=== PATIENT | male | born 1930 | race Caucasian/White ===

== ENCOUNTER 2016-10-17 10:53 | Emergency (ER) | payer MEDICARE ==
[~2016-10-17] VITALS: Ht 175.3 cm; Wt 84.0 kg
[~2016-10-17 10:53] MED LIST: ASPI-496 PO; ERGO500017 PO; FLUT1DIS3 INH; FURO-93 PO; GABA-826 PO; METH500T7 PO; MORP30CP12 PO; POLY17PO5 PO; RANI150T8 PO; TIOT18CA INH
[2016-10-17] MEDS ORDERED: MORPHINE SULFATE 4 MG/ML, 1ML ONE ×2 (11:29→13:06)
[2016-10-17] MEDS ORDERED: SODIUM CHLORIDE FLUSH 10ML SYR IVF ONE (11:30)
[2016-10-17] MEDS ORDERED: SODIUM CHLORIDE 0.9% 1,000ML IVBOLUS ONE (11:30)
[2016-10-17] MEDS ORDERED: MORPHINE SULFATE 4 MG/ML, 1ML IVPush PRN (11:30)
[2016-10-17] MEDS ORDERED: FLUT1AER INH (12:01)
[2016-10-17] MEDS ORDERED: UMEC62.5 INH (12:01)
[2016-10-17] MEDS ORDERED: FINA5TAB PO (12:01)
[2016-10-17] MEDS ORDERED: BUDE0.5A INH (12:01)
[2016-10-17] MEDS ORDERED: MAGN100T6 PO (12:01)
[2016-10-17] MEDS ORDERED: BUDE10.2 INH (12:01)
[2016-10-17] MEDS ORDERED: TRAZ100T15 PO (12:01)
[2016-10-17] MEDS ORDERED: ACET325T14 PO (12:01)
[2016-10-17] MEDS ORDERED: DOCU100C8 PO (12:01)
[2016-10-17] MEDS ORDERED: TAMS-11 PO (12:01)
[2016-10-17] MEDS ORDERED: METF500T4 PO (12:02)
[2016-10-17 12:12] LABS: ASPARTATE AMINO TRANSFERASE 12 U/L (15-37); BLOOD UREA NITROGEN 22 mg/dL (7-18); IS PT STATUS REG ER OR PRE ER? YES
[2016-10-17] MEDS ORDERED: GABA300C10 PO (17:23)
[2016-10-17 18:50] VITALS: BP 122/65
[2016-10-17] MEDS ORDERED: INSULIN SINGLE DOSE, ER SQ-INSULIN ONE (19:01)
== END 2016-10-17 18:52 | disposition home or self-care (01) ==
LOC: ED 15:54
DX: M79.2 Neuralgia and neuritis, unspecified (principal); R53.1 Weakness; R52 Pain, unspecified; I10 Essential (primary) hypertension; J44.9 Chronic obstructive pulmonary disease, unspecified; I48.91 Unspecified atrial fibrillation
CPT/HCPCS: 36415; 71010; 80053; 81003; 84436; 84443; 84484; 85025; 93005; 96361; 96374; 99285; J7030

== ENCOUNTER 2017-10-01 10:58 | Emergency (ER) | payer SELFPAY ==
[~2017-10-01] VITALS: Ht 175.3 cm; Wt 68.0 kg
[~2017-10-01 10:58] MED LIST changes: +ACET325T14 PO; +BUDE0.5A INH; +BUDE10.2 INH; +DOCU100C33 PO; +FINA5TAB PO; +FLUT1AER INH; +GABA300C10 PO; +MAGN100T6 PO; +METF500T5 PO; +RANI150T23 PO; -RANI150T8 PO; +TAMS-11 PO; +TRAZ100T15 PO; +UMEC62.5 INH
[2017-10-01] MEDS ORDERED: ASPIRIN 81 MG TABLET CHEW ONE (11:30)
[2017-10-01] MEDS ORDERED: ASPIRIN 81 MG TABLET CHEW PO ONE (11:30)
[2017-10-01 11:35] LABS: MEAN CORPUSCULAR HEMOGLOBIN 29.5 pg (27.5-34.5); MEAN CORPUSCULAR VOLUME 89.4 fL (81-97); MEAN PLATELET VOLUME 9.3 fL (7.4-10.4); PLATELET COUNT 184 x10^3/uL (130-400); RED BLOOD COUNT 4.14 x10^6/uL (4.38-5.82); RED CELL DISTRIBUTION WIDTH 24.5 % (9.4-14.8)
[2017-10-01 11:39] LABS: INTERNATIONAL NORMALIZED RATIO 1.07 (0.93-1.1); PROTHROMBIN TIME 11.1 Seconds (9.6-11.5)
[2017-10-01] MEDS ORDERED: VIT1CAPS42 PO (11:42)
[2017-10-01] MEDS ORDERED: TIOT4MIS3 INH (11:42)
[2017-10-01] MEDS ORDERED: ACET500T63 PO (11:42)
[2017-10-01] MEDS ORDERED: MELA3TAB2 PO (11:42)
[2017-10-01 11:44] LABS: ALANINE AMINOTRANSFERASE 18 U/L (12-78); ANION GAP 5 mmol/L (5-15); CALCIUM 9.3 mg/dL (8.5-10.1); CHLORIDE 101 mmol/L (98-107); CREATININE 0.84 mg/dL (0.7-1.3)
[2017-10-01 11:48] LABS: ALKALINE PHOSPHATASE 68 U/L (45-117); BILIRUBIN,TOTAL 0.4 mg/dL (0.2-1.0); TOTAL PROTEIN 5.9 g/dL (6.4-8.2); TROPONIN I < 0.015 ng/mL (0.000-0.045)
[2017-10-01 11:59] LABS: BASOPHILS # (AUTO) 0.05 x10^3/uL (0-0.1); BASOPHILS % (AUTO) 1 % (0-1); EOSINOPHILS # (AUTO) 0.09 x10^3/uL (0-0.4); EOSINOPHILS % (AUTO) 1 % (1-7); LYMPHOCYTES # (AUTO) 1.21 x10^3/uL (1-3.4); LYMPHOCYTES % (AUTO) 17 % (22-44); MD SCAN; MONOCYTES # (AUTO) 0.61 x10^3/uL (0.2-0.8); MONOCYTES % (AUTO) 9 % (2-9); NEUTROPHILS % (AUTO) 72 % (42-75)
[2017-10-01 14:10] VITALS: BP 128/62
== END 2017-10-01 16:00 | disposition home or self-care (01) ==
LOC: ED 12:43
DX: R07.89 Other chest pain (principal); K59.00 Constipation, unspecified; I48.91 Unspecified atrial fibrillation; I10 Essential (primary) hypertension; J44.9 Chronic obstructive pulmonary disease, unspecified; F17.200 Nicotine dependence, unspecified, uncomplicated
CPT/HCPCS: 36415; 74022; 80053; 83605; 83880; 84484; 85025; 85610; 93005; 99285

== ENCOUNTER 2018-01-06 16:40 | Emergency (ER) | payer MEDICARE, OTHER ==
[~2018-01-06] VITALS: Ht 175.3 cm; Wt 71.0 kg
[~2018-01-06 16:40] MED LIST changes: +ACET500T63 PO; +MELA3TAB2 PO; +METF500T17 PO; -METF500T5 PO; +TIOT4MIS3 INH; +TRAZ-137 PO; -TRAZ100T15 PO; +VIT1CAPS42 PO
[2018-01-06] MEDS ORDERED: SODIUM CHLORIDE FLUSH 10ML SYR IVF ONE (17:00)
[2018-01-06 17:04] LABS: BASOPHILS # (AUTO) 0.09 x10^3/uL (0-0.1); BASOPHILS % (AUTO) 1 % (0-1); EOSINOPHILS # (AUTO) 0.17 x10^3/uL (0-0.4); EOSINOPHILS % (AUTO) 2 % (1-7); LYMPHOCYTES # (AUTO) 1.53 x10^3/uL (1-3.4); LYMPHOCYTES % (AUTO) 15 % (22-44); MD NO; MEAN CORPUSCULAR HEMOGLOBIN 33.1 pg (27.5-34.5); MEAN CORPUSCULAR HGB CONC 34.1 g/dL (33.2-36.2); MEAN PLATELET VOLUME 8.3 fL (7.4-10.4); MONOCYTES # (AUTO) 1.15 x10^3/uL (0.2-0.8); MONOCYTES % (AUTO) 12 % (2-9); NEUTROPHILS # (AUTO) 7.08 x10^3/uL (1.8-6.8); NEUTROPHILS % (AUTO) 71 % (42-75); PLATELET COUNT 250 x10^3/uL (130-400); RED BLOOD COUNT 3.71 x10^6/uL (4.38-5.82); RED CELL DISTRIBUTION WIDTH 14.4 % (9.4-14.8)
[2018-01-06 17:12] LABS: INTERNATIONAL NORMALIZED RATIO 1.08 (0.93-1.1); PROTHROMBIN TIME 11.1 Seconds (9.6-11.5)
[2018-01-06 17:14] LABS: ALANINE AMINOTRANSFERASE 19 U/L (12-78); ALBUMIN 3.1 g/dL (3.4-5.0); ANION GAP 7 mmol/L (5-15); CALCIUM 9.3 mg/dL (8.5-10.1); CHLORIDE 97 mmol/L (98-107); CREATININE 0.72 mg/dL (0.7-1.3)
[2018-01-06 17:19] LABS: ALKALINE PHOSPHATASE 73 U/L (45-117); BILIRUBIN,TOTAL 0.4 mg/dL (0.2-1.0); TOTAL PROTEIN 6.2 g/dL (6.4-8.2); TROPONIN I < 0.015 ng/mL (0.000-0.045)
[2018-01-06 17:48] VITALS: BP 129/57
[2018-01-06] MEDS ORDERED: SODIUM CHLORIDE FLUSH 10ML SYR IVF PRN (18:30)
== END 2018-01-06 18:46 | disposition left against medical advice (07) ==
LOC: ED 17:51 → EDIP 18:01 → UNDOADMIN 18:01 → ED 18:46
DX: I20.0 Unstable angina (principal); I10 Essential (primary) hypertension; E11.9 Type 2 diabetes mellitus without complications; I25.2 Old myocardial infarction; K21.9 Gastro-esophageal reflux disease without esophagitis; I48.91 Unspecified atrial fibrillation; J44.9 Chronic obstructive pulmonary disease, unspecified; F17.200 Nicotine dependence, unspecified, uncomplicated
CPT/HCPCS: 36415; 71045; 80053; 84484; 85025; 85610; 85730; 93005; 99285

== ENCOUNTER 2018-01-12 14:13 | Observation (INO) | payer OTHER ==
[~2018-01-12] VITALS: Ht 175.3 cm; Wt 66.9 kg
[2018-01-12] VITALS (7 sets, daily range): BP systolic 96–162; BP diastolic 45–77
[2018-01-12] MEDS ORDERED: SODIUM CHLORIDE FLUSH 10ML SYR IVF ONE (14:30)
[2018-01-12 15:07] LABS: BASOPHILS # (AUTO) 0.07 x10^3/uL (0-0.1); BASOPHILS % (AUTO) 1 % (0-1); EOSINOPHILS % (AUTO) 1 % (1-7); LYMPHOCYTES # (AUTO) 1.09 x10^3/uL (1-3.4); LYMPHOCYTES % (AUTO) 10 % (22-44); MD NO; MEAN CORPUSCULAR HEMOGLOBIN 32.2 pg (27.5-34.5); MEAN CORPUSCULAR HGB CONC 32.9 g/dL (33.2-36.2); MEAN CORPUSCULAR VOLUME 97.7 fL (81-97); MEAN PLATELET VOLUME 8.5 fL (7.4-10.4); MONOCYTES # (AUTO) 1.38 x10^3/uL (0.2-0.8); MONOCYTES % (AUTO) 13 % (2-9); NEUTROPHILS # (AUTO) 8.24 x10^3/uL (1.8-6.8); NEUTROPHILS % (AUTO) 76 % (42-75); PLATELET COUNT 235 x10^3/uL (130-400); RED BLOOD COUNT 3.73 x10^6/uL (4.38-5.82); RED CELL DISTRIBUTION WIDTH 14.7 % (9.4-14.8)
[2018-01-12 15:19] LABS: ALANINE AMINOTRANSFERASE 20 U/L (12-78); ALBUMIN 2.9 g/dL (3.4-5.0); ANION GAP 9 mmol/L (5-15); CALCIUM 9.3 mg/dL (8.5-10.1); CHLORIDE 99 mmol/L (98-107); CREATININE 0.85 mg/dL (0.7-1.3)
[2018-01-12 15:24] LABS: ALKALINE PHOSPHATASE 75 U/L (45-117); BILIRUBIN,TOTAL 0.5 mg/dL (0.2-1.0); TOTAL PROTEIN 6.1 g/dL (6.4-8.2); TROPONIN I < 0.015 ng/mL (0.000-0.045)
[2018-01-12] MEDS ORDERED: CHOL200074 PO (15:33)
[2018-01-12] MEDS ORDERED: FERR325T5 PO (15:33)
[2018-01-12] MEDS ORDERED: SENN-52 PO (15:33)
[2018-01-12] MEDS ORDERED: SODIUM CHLORIDE FLUSH 10ML SYR IVF PRN (16:00)
[2018-01-12] MEDS ORDERED: DEXTROSE 50%, 50ML SYRINGE IVPush PRN (17:00)
[2018-01-12] MEDS ORDERED: BISACODYL 10 MG SUPP PR PRN (17:00)
[2018-01-12] MEDS ORDERED: GLUCAGON 1 MG IM PRN (17:00)
[2018-01-12] MEDS ORDERED: NICOTINE 14MG/24 HR PATCH.TD24 TD SCH (17:00)
[2018-01-12] MEDS ORDERED: POLYETHYLENE GLYCOL 17 GM PACKET PO PRN (17:00)
[2018-01-12] MEDS ORDERED: DOCUSATE 100 MG CAPSULE PO PRN (17:00)
[2018-01-12] MEDS ORDERED: DEXTROSE 4 GM TAB.CHEW PO PRN (17:00)
[2018-01-12 17:44] LABS: TROPONIN I < 0.015 ng/mL (0.000-0.045)
[2018-01-12 17:49] LABS: THYROID STIMULATING HORMONE 0.743 mIU/L (0.358-3.740)
[2018-01-12 17:55] LABS: HEMOGLOBIN A1C 6.1 % (4.2-6.3)
[2018-01-12] MEDS: HEPARIN 5,000 UNITS/ML, 1ML SQ SCH (18:26)
[2018-01-12] MEDS ORDERED: TEMPLATE NON-FORMULARY MED. (Vit C/E/Zn/Coppr/Lutein/Zeaxan** (Preservision Areds 2 Softge PO SCH (21:00)
[2018-01-12] MEDS ORDERED: NITROGLYCERIN 0.4 MG BOTTLE (25 TABS) SL ONE (21:20)
[2018-01-12] MEDS: SODIUM CHLORIDE 0.9% 1,000 ML IV SCH (21:27)
[2018-01-12] MEDS: SODIUM CHLORIDE FLUSH 10ML SYR IVF SCH (21:28)
[2018-01-12] MEDS ORDERED: NITROGLYCERIN 0.4 MG BOTTLE (25 TABS) SL PRN (21:30)
[2018-01-12] MEDS ORDERED: NITROGLYCERIN 0.4 MG/SPRAY SL PRN (21:30)
[2018-01-12] MEDS: GABAPENTIN 300 MG CAPSULE PO SCH (22:14)
[2018-01-12] MEDS: INSULIN LISPRO 100 UNITS/ML, PEN SQ-INSULIN SCH (22:15)
[2018-01-12] MEDS: ACETAMINOPHEN 325 MG TABLET PO PRN (22:15)
[2018-01-12 23:21] LABS: TROPONIN I < 0.015 ng/mL (0.000-0.045)
[2018-01-12] MEDS ORDERED: MORPHINE SULFATE 4 MG/ML, 1ML IVPush ONE (23:30)
[2018-01-13] MEDS ORDERED: MELATONIN 3 MG TABLET ONE (00:20)
[2018-01-13 00:22] LABS: AMPHETAMINE SCREEN, URINE Negative (Negative); BARBITURATE SCREEN, URINE Negative (Negative); BENZODIAZEPINE SCREEN, URINE Negative (Negative); CANNABINOID SCREEN, URINE Negative (Negative); COCAINE SCREEN, URINE Negative (Negative); METHADONE SCREEN, URINE Negative (Negative); OPIATE SCREEN, URINE Negative (Negative)
[2018-01-13 00:23] VITALS: BP 138/60
[2018-01-13] MEDS ORDERED: MELATONIN 3 MG TABLET PO PRN (00:30)
[2018-01-13] MEDS: ACETAMINOPHEN 325 MG TABLET PO PRN (04:42)
[2018-01-13 05:11] LABS: BASOPHILS % (AUTO) 1 % (0-1); EOSINOPHILS # (AUTO) 0.17 x10^3/uL (0-0.4); EOSINOPHILS % (AUTO) 2 % (1-7); LYMPHOCYTES # (AUTO) 1.19 x10^3/uL (1-3.4); LYMPHOCYTES % (AUTO) 14 % (22-44); MD NO; MEAN CORPUSCULAR HEMOGLOBIN 32.7 pg (27.5-34.5); MEAN CORPUSCULAR HGB CONC 33.5 g/dL (33.2-36.2); MEAN CORPUSCULAR VOLUME 97.7 fL (81-97); MEAN PLATELET VOLUME 9.1 fL (7.4-10.4); MONOCYTES # (AUTO) 1.14 x10^3/uL (0.2-0.8); MONOCYTES % (AUTO) 14 % (2-9); NEUTROPHILS # (AUTO) 5.66 x10^3/uL (1.8-6.8); NEUTROPHILS % (AUTO) 69 % (42-75); PLATELET COUNT 208 x10^3/uL (130-400); RED BLOOD COUNT 3.44 x10^6/uL (4.38-5.82); RED CELL DISTRIBUTION WIDTH 14.4 % (9.4-14.8)
[2018-01-13 05:23] LABS: CHLORIDE 103 mmol/L (98-107)
[2018-01-13 05:34] LABS: ALANINE AMINOTRANSFERASE 18 U/L (12-78); ALBUMIN 2.7 g/dL (3.4-5.0); ALKALINE PHOSPHATASE 67 U/L (45-117); ANION GAP 5 mmol/L (5-15); BILIRUBIN,TOTAL 0.6 mg/dL (0.2-1.0); CALCIUM 9.3 mg/dL (8.5-10.1); CREATININE 0.59 mg/dL (0.7-1.3); TOTAL PROTEIN 5.5 g/dL (6.4-8.2); TROPONIN I < 0.015 ng/mL (0.000-0.045)
[2018-01-13] MEDS: SODIUM CHLORIDE 0.9% 1,000 ML IV SCH ×2 (05:53→14:00)
[2018-01-13] MEDS: HEPARIN 5,000 UNITS/ML, 1ML SQ SCH ×2 (05:54→14:01)
[2018-01-13] MEDS ORDERED: ASPIRIN 81 MG TABLET EC PO SCH (06:00)
[2018-01-13 07:18] VITALS: BP 149/65
[2018-01-13] MEDS: INSULIN LISPRO 100 UNITS/ML, PEN SQ-INSULIN SCH ×3 (07:38→16:18)
[2018-01-13] MEDS ORDERED: (Tiotropium Br/Olodaterol HCl (Stiolto Respimat Inhal Spray) 2 HOMEMEDPO SCH (09:00)
[2018-01-13] MEDS ORDERED: CHOLECALCIFEROL 1,000 UNIT TABLET PO SCH (09:00)
[2018-01-13] MEDS ORDERED: TAMSULOSIN 0.4 MG CAP.ER.24H PO SCH (09:00)
[2018-01-13] MEDS ORDERED: SENNA/DOCUSATE TABLET PO SCH (09:00)
[2018-01-13] MEDS: SODIUM CHLORIDE FLUSH 10ML SYR IVF SCH (09:16)
[2018-01-13] MEDS: GABAPENTIN 300 MG CAPSULE PO SCH ×2 (09:16→16:18)
[2018-01-13] MEDS ORDERED: ATOR40TA78 PO (15:00)
[2018-01-13 15:58] VITALS: BP 147/72
== END 2018-01-13 16:57 | disposition home or self-care (01) ==
LOC: ED 14:24 → EDIP 16:51 → 5SO 17:36
PROVIDERS: ADMIT Hospitalist; ATTEND Hospitalist
DX: R07.89 Other chest pain (principal); E11.9 Type 2 diabetes mellitus without complications; E87.1 Hypo-osmolality and hyponatremia; E88.09 Other disorders of plasma-protein metabolism, not elsewhere classified; G89.29 Other chronic pain; I10 Essential (primary) hypertension; I25.110 Atherosclerotic heart disease of native coronary artery with unstable angina pectoris; I25.2 Old myocardial infarction; I48.91 Unspecified atrial fibrillation; J44.9 Chronic obstructive pulmonary disease, unspecified; K21.9 Gastro-esophageal reflux disease without esophagitis; M19.90 Unspecified osteoarthritis, unspecified site; N13.30 Unspecified hydronephrosis; N40.0 Benign prostatic hyperplasia without lower urinary tract symptoms; N43.3 Hydrocele, unspecified; Z86.73 Personal history of transient ischemic attack (TIA), and cerebral infarction without residual deficits; Z99.81 Dependence on supplemental oxygen
CPT/HCPCS: 36415; 71045; 76870; 80053; 80307; 82962; 83036; 83690; 83735; 84100; 84443; 84484; 85025; 93005; 93306; 96372; 99285; G0378; J1644; J1815; J7030

== ENCOUNTER 2018-02-14 15:23 | Inpatient (IN) | payer MEDICARE, OTHER ==
[~2018-02-14] VITALS: Ht 175.3 cm; Wt 62.3 kg
[~2018-02-14 15:23] MED LIST changes: +ATOR40TA78 PO; +CHOL200074 PO; +FERR325T5 PO; +SENN-52 PO
[2018-02-14 16:21] LABS: BASOPHILS # (AUTO) 0.06 x10^3/uL (0-0.1); BASOPHILS % (AUTO) 1 % (0-1); EOSINOPHILS # (AUTO) 0.08 x10^3/uL (0-0.4); EOSINOPHILS % (AUTO) 1 % (1-7); LYMPHOCYTES # (AUTO) 0.87 x10^3/uL (1-3.4); LYMPHOCYTES % (AUTO) 11 % (22-44); MD NO; MEAN CORPUSCULAR HEMOGLOBIN 33.3 pg (27.5-34.5); MEAN CORPUSCULAR HGB CONC 33.7 g/dL (33.2-36.2); MEAN CORPUSCULAR VOLUME 98.8 fL (81-97); MEAN PLATELET VOLUME 8.6 fL (7.4-10.4); MONOCYTES # (AUTO) 0.73 x10^3/uL (0.2-0.8); MONOCYTES % (AUTO) 9 % (2-9); NEUTROPHILS # (AUTO) 6.26 x10^3/uL (1.8-6.8); NEUTROPHILS % (AUTO) 78 % (42-75); PLATELET COUNT 198 x10^3/uL (130-400); RED BLOOD COUNT 3.92 x10^6/uL (4.38-5.82); RED CELL DISTRIBUTION WIDTH 16.5 % (9.4-14.8)
[2018-02-14] MEDS ORDERED: ONDANSETRON 2MG/ML, 2ML IVPush ONE (16:30)
[2018-02-14] MEDS ORDERED: morphine SULFATE 10 MG/ML, 1ML IVPush ONE (16:30)
[2018-02-14 16:32] LABS: ALBUMIN 3.1 g/dL (3.4-5.0); ANION GAP 7 mmol/L (5-15); CALCIUM 9.7 mg/dL (8.5-10.1); CHLORIDE 101 mmol/L (98-107)
[2018-02-14 16:37] LABS: ALANINE AMINOTRANSFERASE 30 U/L (12-78); ALKALINE PHOSPHATASE 88 U/L (45-117); BILIRUBIN,TOTAL 0.6 mg/dL (0.2-1.0); CREATININE 0.79 mg/dL (0.7-1.3); TOTAL PROTEIN 6.5 g/dL (6.4-8.2); TROPONIN I < 0.015 ng/mL (0.000-0.045)
[2018-02-14] MEDS ORDERED: CARB15DR5 EACHEYE (16:53)
[2018-02-14] MEDS ORDERED: morphine SULFATE 10 MG/ML, 1ML IVPush PRN (17:00)
[2018-02-14] MEDS ORDERED: TEMPLATE NON-FORMULARY MED. (Gabapentin** 300 MG) PO SCH (17:00)
[2018-02-14] MEDS ORDERED: DEXTROSE 50%, 50ML SYRINGE IVPush PRN (17:00)
[2018-02-14] MEDS ORDERED: DEXTROSE 4 GM TAB.CHEW PO PRN (17:00)
[2018-02-14] MEDS ORDERED: ONDANSETRON 2MG/ML, 2ML IVPush PRN (17:00)
[2018-02-14] MEDS ORDERED: GLUCAGON 1 MG IM PRN (17:00)
[2018-02-14] MEDS: NICOTINE 7 MG/24 HR PATCH.TD24 TD SCH (17:00)
[2018-02-14] MEDS ORDERED: MORPHINE SULFATE 4 MG/ML, 1ML ONE (17:04)
[2018-02-14] MEDS ORDERED: ONDANSETRON 2MG/ML, 2ML ONE (17:04)
[2018-02-14] MEDS: SODIUM CHLORIDE FLUSH 10ML SYR IVF SCH ×2 (19:13→21:27)
[2018-02-14 19:55] VITALS: BP 148/64
[2018-02-14] MEDS ORDERED: TEMPLATE NON-FORMULARY MED. (Vit C/E/Zn/Coppr/Lutein/Zeaxan** (Preservision Areds 2 Softge PO SCH (21:00)
[2018-02-14] MEDS: INSULIN LISPRO 100 UNITS/ML, PEN SQ-INSULIN SCH (21:00)
[2018-02-14] MEDS: GABAPENTIN 300 MG CAPSULE PO SCH (21:26)
[2018-02-14] MEDS: ATORVASTATIN 40 MG TABLET PO SCH (21:27)
[2018-02-14] MEDS: MELATONIN 3 MG TABLET PO SCH (21:27)
[2018-02-14] MEDS: metFORMIN 500 MG TABLET PO SCH (21:27)
[2018-02-15 00:52] VITALS: BP 97/57
[2018-02-15] MEDS: IBUPROFEN 600 MG TABLET PO PRN ×2 (04:52→11:11)
[2018-02-15] MEDS: INSULIN LISPRO 100 UNITS/ML, PEN SQ-INSULIN SCH ×4 (07:57→21:00)
[2018-02-15] MEDS: FERROUS SULFATE 325 MG TABLET PO SCH (07:58)
[2018-02-15] MEDS: SODIUM CHLORIDE FLUSH 10ML SYR IVF SCH ×4 (07:58→21:12)
[2018-02-15] MEDS: ASPIRIN 81 MG TABLET CHEW PO SCH (07:58)
[2018-02-15] MEDS: TEMPLATE NON-FORMULARY MED. (Tiotropium Br/Olodaterol HCl (Stiolto Respimat Inhal Spray) 2 INH SCH (07:58)
[2018-02-15] MEDS: SENNA/DOCUSATE TABLET PO SCH ×2 (07:59→08:00)
[2018-02-15] MEDS: MULTIVITAMINS/MINERALS TABLET PO SCH (07:59)
[2018-02-15] MEDS: TAMSULOSIN 0.4 MG CAP.ER.24H PO SCH (07:59)
[2018-02-15] MEDS: GABAPENTIN 300 MG CAPSULE PO SCH ×3 (07:59→21:13)
[2018-02-15] MEDS: metFORMIN 500 MG TABLET PO SCH ×2 (08:01→21:13)
[2018-02-15] MEDS: ENOXAPARIN 40 MG/0.4 ML SQ SCH (08:01)
[2018-02-15] MEDS: HYDROcodone/APAP 5/325 TABLET PO PRN ×4 (08:01→22:12)
[2018-02-15 08:14] VITALS: BP 102/58
[2018-02-15 14:52] VITALS: BP 109/61
[2018-02-15] MEDS: NICOTINE 7 MG/24 HR PATCH.TD24 TD SCH (16:17)
[2018-02-15 19:39] VITALS: BP 104/66
[2018-02-15] MEDS: ACETAMINOPHEN 325 MG TABLET PO PRN (19:58)
[2018-02-15] MEDS: MELATONIN 3 MG TABLET PO SCH (21:13)
[2018-02-15] MEDS: ATORVASTATIN 40 MG TABLET PO SCH (21:13)
[2018-02-16 02:16] VITALS: BP 120/63
[2018-02-16] MEDS: HYDROcodone/APAP 5/325 TABLET PO PRN ×3 (03:12→15:21)
[2018-02-16] MEDS: ACETAMINOPHEN 325 MG TABLET PO PRN (05:06)
[2018-02-16] MEDS: INSULIN LISPRO 100 UNITS/ML, PEN SQ-INSULIN SCH ×4 (07:00→23:00)
[2018-02-16 08:05] VITALS: BP 100/57
[2018-02-16] MEDS: TEMPLATE NON-FORMULARY MED. (Tiotropium Br/Olodaterol HCl (Stiolto Respimat Inhal Spray) 2 INH SCH (08:28)
[2018-02-16] MEDS: SODIUM CHLORIDE FLUSH 10ML SYR IVF SCH ×4 (08:29→19:56)
[2018-02-16] MEDS: TAMSULOSIN 0.4 MG CAP.ER.24H PO SCH (08:29)
[2018-02-16] MEDS: POLYETHYLENE GLYCOL 17 GM PACKET PO PRN (08:29)
[2018-02-16] MEDS: MULTIVITAMINS/MINERALS TABLET PO SCH (08:29)
[2018-02-16] MEDS: GABAPENTIN 300 MG CAPSULE PO SCH ×3 (08:30→19:55)
[2018-02-16] MEDS: ASPIRIN 81 MG TABLET CHEW PO SCH (08:30)
[2018-02-16] MEDS: metFORMIN 500 MG TABLET PO SCH ×2 (08:30→19:55)
[2018-02-16] MEDS: FERROUS SULFATE 325 MG TABLET PO SCH (08:30)
[2018-02-16] MEDS: SENNA/DOCUSATE TABLET PO SCH ×2 (08:30)
[2018-02-16] MEDS: ENOXAPARIN 40 MG/0.4 ML SQ SCH (08:30)
[2018-02-16] MEDS ORDERED: ONDANSETRON ODT 4 MG ONE (12:35)
[2018-02-16] MEDS: ONDANSETRON ODT 4 MG PO PRN (12:50)
[2018-02-16 14:38] VITALS: BP 123/66
[2018-02-16] MEDS: NICOTINE 7 MG/24 HR PATCH.TD24 TD SCH (17:00)
[2018-02-16 19:19] VITALS: BP 92/55
[2018-02-16] MEDS: MELATONIN 3 MG TABLET PO SCH (19:55)
[2018-02-16] MEDS: ATORVASTATIN 40 MG TABLET PO SCH (19:55)
[2018-02-16] MEDS ORDERED: BISACODYL 10 MG SUPP PR PRN (22:00)
[2018-02-17 01:34] VITALS: BP 102/62
[2018-02-17] MEDS: HYDROcodone/APAP 5/325 TABLET PO PRN ×4 (05:54→20:58)
[2018-02-17] MEDS: INSULIN LISPRO 100 UNITS/ML, PEN SQ-INSULIN SCH ×4 (07:00→20:45)
[2018-02-17 07:12] VITALS: BP 97/63
[2018-02-17] MEDS: TEMPLATE NON-FORMULARY MED. (Tiotropium Br/Olodaterol HCl (Stiolto Respimat Inhal Spray) 2 INH SCH (07:55)
[2018-02-17] MEDS: SODIUM CHLORIDE FLUSH 10ML SYR IVF SCH ×4 (07:55→20:58)
[2018-02-17] MEDS: SENNA/DOCUSATE TABLET PO SCH ×2 (07:56→07:57)
[2018-02-17] MEDS: MULTIVITAMINS/MINERALS TABLET PO SCH (09:33)
[2018-02-17] MEDS: ASPIRIN 81 MG TABLET CHEW PO SCH (09:33)
[2018-02-17] MEDS: ENOXAPARIN 40 MG/0.4 ML SQ SCH (09:33)
[2018-02-17] MEDS: FERROUS SULFATE 325 MG TABLET PO SCH (09:33)
[2018-02-17] MEDS: IBUPROFEN 600 MG TABLET PO PRN (09:33)
[2018-02-17] MEDS: GABAPENTIN 300 MG CAPSULE PO SCH ×3 (09:33→20:58)
[2018-02-17] MEDS: TAMSULOSIN 0.4 MG CAP.ER.24H PO SCH (09:33)
[2018-02-17] MEDS: metFORMIN 500 MG TABLET PO SCH ×2 (09:34→20:58)
[2018-02-17 12:44] VITALS: BP 133/69
[2018-02-17] MEDS: NICOTINE 7 MG/24 HR PATCH.TD24 TD SCH (16:13)
[2018-02-17 19:20] VITALS: BP 110/59
[2018-02-17] MEDS: MELATONIN 3 MG TABLET PO SCH (20:58)
[2018-02-17] MEDS: ATORVASTATIN 40 MG TABLET PO SCH (20:58)
[2018-02-18] MEDS: HYDROcodone/APAP 5/325 TABLET PO PRN ×5 (01:02→20:54)
[2018-02-18 01:26] VITALS: BP 112/57
[2018-02-18 06:55] VITALS: BP 117/61
[2018-02-18] MEDS: INSULIN LISPRO 100 UNITS/ML, PEN SQ-INSULIN SCH ×4 (07:00→20:19)
[2018-02-18] MEDS: ENOXAPARIN 40 MG/0.4 ML SQ SCH (08:07)
[2018-02-18] MEDS: metFORMIN 500 MG TABLET PO SCH ×2 (08:08→20:54)
[2018-02-18] MEDS: GABAPENTIN 300 MG CAPSULE PO SCH ×3 (08:08→20:54)
[2018-02-18] MEDS: ACETAMINOPHEN 325 MG TABLET PO PRN ×2 (08:08→20:55)
[2018-02-18] MEDS: MULTIVITAMINS/MINERALS TABLET PO SCH (08:08)
[2018-02-18] MEDS: TAMSULOSIN 0.4 MG CAP.ER.24H PO SCH (08:08)
[2018-02-18] MEDS: SENNA/DOCUSATE TABLET PO SCH ×2 (08:08→09:00)
[2018-02-18] MEDS: ASPIRIN 81 MG TABLET CHEW PO SCH (08:09)
[2018-02-18] MEDS: TEMPLATE NON-FORMULARY MED. (Tiotropium Br/Olodaterol HCl (Stiolto Respimat Inhal Spray) 2 INH SCH (08:24)
[2018-02-18] MEDS: SODIUM CHLORIDE FLUSH 10ML SYR IVF SCH ×4 (09:00→20:56)
[2018-02-18] MEDS: NAPHAZOLINE/PHENIRAMINE OPHTH EACHEYE SCH (12:00)
[2018-02-18 12:47] VITALS: BP 96/52
[2018-02-18] MEDS: EYE WASH SOLUTION 120ML EACHEYE PRN (12:51)
[2018-02-18] MEDS: FERROUS SULFATE 325 MG TABLET PO SCH (12:51)
[2018-02-18] MEDS: NICOTINE 7 MG/24 HR PATCH.TD24 TD SCH (17:00)
[2018-02-18 18:55] VITALS: BP 105/58
[2018-02-18] MEDS: MELATONIN 3 MG TABLET PO SCH (20:54)
[2018-02-18] MEDS: ATORVASTATIN 40 MG TABLET PO SCH (20:54)
[2018-02-19 01:30] VITALS: BP 111/62
[2018-02-19] MEDS: INSULIN LISPRO 100 UNITS/ML, PEN SQ-INSULIN SCH ×4 (07:00→20:59)
[2018-02-19 07:01] VITALS: BP 120/72
[2018-02-19] MEDS: HYDROcodone/APAP 5/325 TABLET PO PRN ×4 (07:38→23:00)
[2018-02-19] MEDS: metFORMIN 500 MG TABLET PO SCH ×2 (07:41→20:59)
[2018-02-19] MEDS: SENNA/DOCUSATE TABLET PO SCH ×2 (07:42→08:01)
[2018-02-19] MEDS: TAMSULOSIN 0.4 MG CAP.ER.24H PO SCH (07:44)
[2018-02-19] MEDS: FERROUS SULFATE 325 MG TABLET PO SCH (07:44)
[2018-02-19] MEDS: GABAPENTIN 300 MG CAPSULE PO SCH ×3 (07:45→20:59)
[2018-02-19] MEDS: ASPIRIN 81 MG TABLET CHEW PO SCH (07:45)
[2018-02-19] MEDS: ENOXAPARIN 40 MG/0.4 ML SQ SCH (07:50)
[2018-02-19] MEDS: MULTIVITAMINS/MINERALS TABLET PO SCH (07:50)
[2018-02-19] MEDS: TEMPLATE NON-FORMULARY MED. (Tiotropium Br/Olodaterol HCl (Stiolto Respimat Inhal Spray) 2 INH SCH (08:01)
[2018-02-19] MEDS: SODIUM CHLORIDE FLUSH 10ML SYR IVF SCH ×4 (08:01→20:59)
[2018-02-19] MEDS: NAPHAZOLINE/PHENIRAMINE OPHTH EACHEYE SCH (08:43)
[2018-02-19] MEDS ORDERED: NAPHAZOLINE/PHENIRAMINE OPHTH EACHEYE SCH (09:00)
[2018-02-19 12:27] VITALS: BP 132/62
[2018-02-19] MEDS: NICOTINE 7 MG/24 HR PATCH.TD24 TD SCH (17:00)
[2018-02-19 18:29] VITALS: BP 135/67
[2018-02-19] MEDS: ATORVASTATIN 40 MG TABLET PO SCH (20:59)
[2018-02-19] MEDS: MELATONIN 3 MG TABLET PO SCH (20:59)
[2018-02-20 01:34] VITALS: BP 117/73
[2018-02-20] MEDS: HYDROcodone/APAP 5/325 TABLET PO PRN ×5 (03:45→22:16)
[2018-02-20] MEDS: EYE WASH SOLUTION 120ML EACHEYE PRN ×2 (03:46→22:17)
[2018-02-20] MEDS: INSULIN LISPRO 100 UNITS/ML, PEN SQ-INSULIN SCH ×4 (07:00→20:46)
[2018-02-20 07:49] VITALS: BP 102/57
[2018-02-20] MEDS: SENNA/DOCUSATE TABLET PO SCH ×2 (09:00→09:55)
[2018-02-20] MEDS: SODIUM CHLORIDE FLUSH 10ML SYR IVF SCH ×4 (09:00→22:16)
[2018-02-20] MEDS: TEMPLATE NON-FORMULARY MED. (Tiotropium Br/Olodaterol HCl (Stiolto Respimat Inhal Spray) 2 INH SCH (09:00)
[2018-02-20] MEDS: NAPHAZOLINE/PHENIRAMINE OPHTH EACHEYE SCH (09:51)
[2018-02-20] MEDS: TAMSULOSIN 0.4 MG CAP.ER.24H PO SCH (09:55)
[2018-02-20] MEDS: metFORMIN 500 MG TABLET PO SCH ×2 (09:55→22:16)
[2018-02-20] MEDS: ENOXAPARIN 40 MG/0.4 ML SQ SCH (09:55)
[2018-02-20] MEDS: ASPIRIN 81 MG TABLET CHEW PO SCH (09:55)
[2018-02-20] MEDS: FERROUS SULFATE 325 MG TABLET PO SCH (09:55)
[2018-02-20] MEDS: GABAPENTIN 300 MG CAPSULE PO SCH ×3 (09:56→22:16)
[2018-02-20] MEDS: MULTIVITAMINS/MINERALS TABLET PO SCH (09:56)
[2018-02-20 12:18] VITALS: BP 112/63
[2018-02-20] MEDS: NICOTINE 7 MG/24 HR PATCH.TD24 TD SCH (16:48)
[2018-02-20 18:50] VITALS: BP 112/68
[2018-02-20] MEDS: ATORVASTATIN 40 MG TABLET PO SCH (22:16)
[2018-02-20] MEDS: MELATONIN 3 MG TABLET PO SCH (22:16)
[2018-02-21 01:21] VITALS: BP 94/51
[2018-02-21] MEDS: EYE WASH SOLUTION 120ML EACHEYE PRN (02:34)
[2018-02-21] MEDS: HYDROcodone/APAP 5/325 TABLET PO PRN ×5 (02:37→21:02)
[2018-02-21] MEDS: INSULIN LISPRO 100 UNITS/ML, PEN SQ-INSULIN SCH ×4 (07:00→21:02)
[2018-02-21 07:35] VITALS: BP 122/62
[2018-02-21] MEDS: SENNA/DOCUSATE TABLET PO SCH (08:10)
[2018-02-21] MEDS: FERROUS SULFATE 325 MG TABLET PO SCH (08:11)
[2018-02-21] MEDS: MULTIVITAMINS/MINERALS TABLET PO SCH (08:11)
[2018-02-21] MEDS: ASPIRIN 81 MG TABLET CHEW PO SCH (08:11)
[2018-02-21] MEDS: GABAPENTIN 300 MG CAPSULE PO SCH ×3 (08:11→21:02)
[2018-02-21] MEDS: metFORMIN 500 MG TABLET PO SCH ×2 (08:11→21:01)
[2018-02-21] MEDS: NAPHAZOLINE/PHENIRAMINE OPHTH EACHEYE SCH (08:12)
[2018-02-21] MEDS: TAMSULOSIN 0.4 MG CAP.ER.24H PO SCH (08:12)
[2018-02-21] MEDS: TEMPLATE NON-FORMULARY MED. (Tiotropium Br/Olodaterol HCl (Stiolto Respimat Inhal Spray) 2 INH SCH (08:13)
[2018-02-21] MEDS: SODIUM CHLORIDE FLUSH 10ML SYR IVF SCH ×4 (08:13→21:03)
[2018-02-21] MEDS: ENOXAPARIN 40 MG/0.4 ML SQ SCH (08:14)
[2018-02-21 15:31] VITALS: BP 124/67
[2018-02-21] MEDS: NICOTINE 7 MG/24 HR PATCH.TD24 TD SCH (17:00)
[2018-02-21 18:52] VITALS: BP 100/56
[2018-02-21] MEDS: MELATONIN 3 MG TABLET PO SCH (21:01)
[2018-02-21] MEDS: ATORVASTATIN 40 MG TABLET PO SCH (21:02)
[2018-02-22 01:04] VITALS: BP 143/55
[2018-02-22] MEDS: HYDROcodone/APAP 5/325 TABLET PO PRN ×4 (02:52→20:57)
[2018-02-22] MEDS: ACETAMINOPHEN 325 MG TABLET PO PRN (06:10)
[2018-02-22] MEDS: INSULIN LISPRO 100 UNITS/ML, PEN SQ-INSULIN SCH ×4 (07:00→20:56)
[2018-02-22 07:20] VITALS: BP 106/63
[2018-02-22] MEDS: ASPIRIN 81 MG TABLET CHEW PO SCH (07:44)
[2018-02-22] MEDS: metFORMIN 500 MG TABLET PO SCH ×2 (07:44→20:57)
[2018-02-22] MEDS: TAMSULOSIN 0.4 MG CAP.ER.24H PO SCH (07:44)
[2018-02-22] MEDS: MULTIVITAMINS/MINERALS TABLET PO SCH (07:44)
[2018-02-22] MEDS: SENNA/DOCUSATE TABLET PO SCH (07:44)
[2018-02-22] MEDS: FERROUS SULFATE 325 MG TABLET PO SCH (07:44)
[2018-02-22] MEDS: SODIUM CHLORIDE FLUSH 10ML SYR IVF SCH ×4 (07:45→20:58)
[2018-02-22] MEDS: TEMPLATE NON-FORMULARY MED. (Tiotropium Br/Olodaterol HCl (Stiolto Respimat Inhal Spray) 2 INH SCH (07:45)
[2018-02-22] MEDS: NAPHAZOLINE/PHENIRAMINE OPHTH EACHEYE SCH (07:46)
[2018-02-22] MEDS: GABAPENTIN 300 MG CAPSULE PO SCH ×3 (07:47→20:57)
[2018-02-22] MEDS: ENOXAPARIN 40 MG/0.4 ML SQ SCH (07:47)
[2018-02-22 14:00] VITALS: BP 131/69
[2018-02-22] MEDS: NICOTINE 7 MG/24 HR PATCH.TD24 TD SCH (16:58)
[2018-02-22 19:13] VITALS: BP 128/58
[2018-02-22] MEDS: MELATONIN 3 MG TABLET PO SCH (20:57)
[2018-02-22] MEDS: ATORVASTATIN 40 MG TABLET PO SCH (20:57)
[2018-02-23 00:51] VITALS: BP 115/65
[2018-02-23] MEDS: HYDROcodone/APAP 5/325 TABLET PO PRN ×5 (01:26→21:13)
[2018-02-23 05:40] LABS: CREATININE 0.74 mg/dL (0.7-1.3)
[2018-02-23] MEDS: INSULIN LISPRO 100 UNITS/ML, PEN SQ-INSULIN SCH ×4 (07:00→21:21)
[2018-02-23 07:20] VITALS: BP 148/71
[2018-02-23] MEDS: SENNA/DOCUSATE TABLET PO SCH (07:23)
[2018-02-23] MEDS: metFORMIN 500 MG TABLET PO SCH ×2 (07:24→21:14)
[2018-02-23] MEDS: MULTIVITAMINS/MINERALS TABLET PO SCH (07:24)
[2018-02-23] MEDS: ASPIRIN 81 MG TABLET CHEW PO SCH (07:24)
[2018-02-23] MEDS: TAMSULOSIN 0.4 MG CAP.ER.24H PO SCH (07:24)
[2018-02-23] MEDS: NAPHAZOLINE/PHENIRAMINE OPHTH EACHEYE SCH (07:24)
[2018-02-23] MEDS: FERROUS SULFATE 325 MG TABLET PO SCH (07:24)
[2018-02-23] MEDS: ENOXAPARIN 40 MG/0.4 ML SQ SCH (07:25)
[2018-02-23] MEDS: SODIUM CHLORIDE FLUSH 10ML SYR IVF SCH ×4 (07:25→21:14)
[2018-02-23] MEDS: GABAPENTIN 300 MG CAPSULE PO SCH ×3 (07:25→21:13)
[2018-02-23] MEDS: TEMPLATE NON-FORMULARY MED. (Tiotropium Br/Olodaterol HCl (Stiolto Respimat Inhal Spray) 2 INH SCH (07:25)
[2018-02-23 13:54] VITALS: BP 147/82
[2018-02-23] MEDS: NICOTINE 7 MG/24 HR PATCH.TD24 TD SCH (16:13)
[2018-02-23 20:00] VITALS: BP 117/62
[2018-02-23] MEDS: ATORVASTATIN 40 MG TABLET PO SCH (21:13)
[2018-02-23] MEDS: MELATONIN 3 MG TABLET PO SCH (21:13)
[2018-02-24] MEDS: HYDROcodone/APAP 5/325 TABLET PO PRN ×5 (01:43→19:57)
[2018-02-24 01:46] VITALS: BP 141/83
[2018-02-24] MEDS: ACETAMINOPHEN 325 MG TABLET PO PRN (04:40)
[2018-02-24] MEDS: DOCUSATE 100 MG CAPSULE PO PRN (05:54)
[2018-02-24 07:08] VITALS: BP 137/66
[2018-02-24] MEDS: INSULIN LISPRO 100 UNITS/ML, PEN SQ-INSULIN SCH ×4 (08:06→20:12)
[2018-02-24] MEDS: TAMSULOSIN 0.4 MG CAP.ER.24H PO SCH (08:11)
[2018-02-24] MEDS: metFORMIN 500 MG TABLET PO SCH ×2 (08:11→19:58)
[2018-02-24] MEDS: ASPIRIN 81 MG TABLET CHEW PO SCH (08:11)
[2018-02-24] MEDS: MULTIVITAMINS/MINERALS TABLET PO SCH (08:11)
[2018-02-24] MEDS: SENNA/DOCUSATE TABLET PO SCH (08:11)
[2018-02-24] MEDS: ENOXAPARIN 40 MG/0.4 ML SQ SCH (08:11)
[2018-02-24] MEDS: GABAPENTIN 300 MG CAPSULE PO SCH ×3 (08:11→19:57)
[2018-02-24] MEDS: FERROUS SULFATE 325 MG TABLET PO SCH (08:11)
[2018-02-24] MEDS: NAPHAZOLINE/PHENIRAMINE OPHTH EACHEYE SCH (08:14)
[2018-02-24] MEDS: TEMPLATE NON-FORMULARY MED. (Tiotropium Br/Olodaterol HCl (Stiolto Respimat Inhal Spray) 2 INH SCH (08:14)
[2018-02-24] MEDS: SODIUM CHLORIDE FLUSH 10ML SYR IVF SCH ×4 (08:15→19:58)
[2018-02-24 12:56] VITALS: BP 129/72
[2018-02-24] MEDS: NICOTINE 7 MG/24 HR PATCH.TD24 TD SCH (15:41)
[2018-02-24 18:59] VITALS: BP 117/64
[2018-02-24] MEDS: ATORVASTATIN 40 MG TABLET PO SCH (19:57)
[2018-02-24] MEDS: MELATONIN 3 MG TABLET PO SCH (19:57)
[2018-02-24] MEDS: EYE WASH SOLUTION 120ML EACHEYE PRN (20:11)
[2018-02-24] MEDS: POLYETHYLENE GLYCOL 17 GM PACKET PO PRN (20:11)
[2018-02-25] MEDS: HYDROcodone/APAP 5/325 TABLET PO PRN ×6 (01:26→23:07)
[2018-02-25 01:34] VITALS: BP 123/72
[2018-02-25] MEDS: EYE WASH SOLUTION 120ML EACHEYE PRN (05:18)
[2018-02-25 07:29] VITALS: BP 123/68
[2018-02-25] MEDS: INSULIN LISPRO 100 UNITS/ML, PEN SQ-INSULIN SCH ×4 (07:57→20:09)
[2018-02-25] MEDS: SODIUM CHLORIDE FLUSH 10ML SYR IVF SCH ×4 (09:00→20:09)
[2018-02-25] MEDS: TEMPLATE NON-FORMULARY MED. (Tiotropium Br/Olodaterol HCl (Stiolto Respimat Inhal Spray) 2 INH SCH (09:00)
[2018-02-25] MEDS: NAPHAZOLINE/PHENIRAMINE OPHTH EACHEYE SCH (09:00)
[2018-02-25] MEDS: GABAPENTIN 300 MG CAPSULE PO SCH ×3 (09:22→20:09)
[2018-02-25] MEDS: ENOXAPARIN 40 MG/0.4 ML SQ SCH (09:22)
[2018-02-25] MEDS: ASPIRIN 81 MG TABLET CHEW PO SCH (09:22)
[2018-02-25] MEDS: TAMSULOSIN 0.4 MG CAP.ER.24H PO SCH (09:22)
[2018-02-25] MEDS: SENNA/DOCUSATE TABLET PO SCH (09:22)
[2018-02-25] MEDS: metFORMIN 500 MG TABLET PO SCH ×2 (09:22→20:09)
[2018-02-25] MEDS: ACETAMINOPHEN 325 MG TABLET PO PRN (09:22)
[2018-02-25] MEDS: FERROUS SULFATE 325 MG TABLET PO SCH (09:23)
[2018-02-25] MEDS: MULTIVITAMINS/MINERALS TABLET PO SCH (09:23)
[2018-02-25 12:33] VITALS: BP 114/71
[2018-02-25] MEDS: NICOTINE 7 MG/24 HR PATCH.TD24 TD SCH (17:00)
[2018-02-25 19:59] VITALS: BP 116/67
[2018-02-25] MEDS: MELATONIN 3 MG TABLET PO SCH (20:09)
[2018-02-25] MEDS: ATORVASTATIN 40 MG TABLET PO SCH (20:09)
[2018-02-26 01:35] VITALS: BP 107/63
[2018-02-26 05:59] LABS: BASOPHILS # (AUTO) 0.08 x10^3/uL (0-0.1); BASOPHILS % (AUTO) 1 % (0-1); EOSINOPHILS # (AUTO) 0.29 x10^3/uL (0-0.4); EOSINOPHILS % (AUTO) 4 % (1-7); LYMPHOCYTES # (AUTO) 1.77 x10^3/uL (1-3.4); LYMPHOCYTES % (AUTO) 22 % (22-44); MD NO; MEAN CORPUSCULAR HEMOGLOBIN 33.9 pg (27.5-34.5); MEAN CORPUSCULAR HGB CONC 34.1 g/dL (33.2-36.2); MEAN CORPUSCULAR VOLUME 99.5 fL (81-97); MEAN PLATELET VOLUME 9.5 fL (7.4-10.4); MONOCYTES # (AUTO) 0.89 x10^3/uL (0.2-0.8); MONOCYTES % (AUTO) 11 % (2-9); NEUTROPHILS # (AUTO) 5.08 x10^3/uL (1.8-6.8); NEUTROPHILS % (AUTO) 63 % (42-75); PLATELET COUNT 181 x10^3/uL (130-400); RED CELL DISTRIBUTION WIDTH 15.7 % (9.4-14.8)
[2018-02-26 06:12] LABS: ALBUMIN 3.1 g/dL (3.4-5.0); ANION GAP 7 mmol/L (5-15); CALCIUM 9.2 mg/dL (8.5-10.1); CHLORIDE 108 mmol/L (98-107)
[2018-02-26 06:20] LABS: ALANINE AMINOTRANSFERASE 20 U/L (12-78); ALKALINE PHOSPHATASE 62 U/L (45-117); BILIRUBIN,TOTAL 0.8 mg/dL (0.2-1.0); CREATININE 0.71 mg/dL (0.7-1.3); TOTAL PROTEIN 5.8 g/dL (6.4-8.2)
[2018-02-26] MEDS: INSULIN LISPRO 100 UNITS/ML, PEN SQ-INSULIN SCH ×4 (07:00→20:25)
[2018-02-26 07:25] VITALS: BP 112/69
[2018-02-26] MEDS: TEMPLATE NON-FORMULARY MED. (Tiotropium Br/Olodaterol HCl (Stiolto Respimat Inhal Spray) 2 INH SCH (07:54)
[2018-02-26] MEDS: ASPIRIN 81 MG TABLET CHEW PO SCH (08:30)
[2018-02-26] MEDS: MULTIVITAMINS/MINERALS TABLET PO SCH (08:31)
[2018-02-26] MEDS: SENNA/DOCUSATE TABLET PO SCH (08:31)
[2018-02-26] MEDS: ENOXAPARIN 40 MG/0.4 ML SQ SCH (08:31)
[2018-02-26] MEDS: metFORMIN 500 MG TABLET PO SCH ×2 (08:31→20:24)
[2018-02-26] MEDS: FERROUS SULFATE 325 MG TABLET PO SCH (08:32)
[2018-02-26] MEDS: TAMSULOSIN 0.4 MG CAP.ER.24H PO SCH (08:32)
[2018-02-26] MEDS: GABAPENTIN 300 MG CAPSULE PO SCH ×3 (08:32→20:23)
[2018-02-26] MEDS: NAPHAZOLINE/PHENIRAMINE OPHTH EACHEYE SCH (08:33)
[2018-02-26] MEDS: SODIUM CHLORIDE FLUSH 10ML SYR IVF SCH ×4 (08:33→20:24)
[2018-02-26 14:16] VITALS: BP 131/68
[2018-02-26] MEDS: POLYETHYLENE GLYCOL 17 GM PACKET PO PRN (15:20)
[2018-02-26] MEDS: HYDROcodone/APAP 5/325 TABLET PO PRN ×2 (15:20→19:33)
[2018-02-26] MEDS: DOCUSATE 100 MG CAPSULE PO PRN (15:20)
[2018-02-26] MEDS: NICOTINE 7 MG/24 HR PATCH.TD24 TD SCH ×2 (16:52→16:54)
[2018-02-26 18:30] VITALS: BP 110/60
[2018-02-26] MEDS: ONDANSETRON ODT 4 MG PO PRN (19:33)
[2018-02-26] MEDS: ATORVASTATIN 40 MG TABLET PO SCH (20:23)
[2018-02-26] MEDS: MELATONIN 3 MG TABLET PO SCH (20:24)
[2018-02-26] MEDS: EYE WASH SOLUTION 120ML EACHEYE PRN (22:30)
[2018-02-27 01:32] VITALS: BP 107/65
[2018-02-27] MEDS: HYDROcodone/APAP 5/325 TABLET PO PRN ×4 (03:48→21:12)
[2018-02-27] MEDS: EYE WASH SOLUTION 120ML EACHEYE PRN ×2 (03:48→20:29)
[2018-02-27 06:49] VITALS: BP 110/68
[2018-02-27] MEDS: INSULIN LISPRO 100 UNITS/ML, PEN SQ-INSULIN SCH ×4 (07:00→20:30)
[2018-02-27] MEDS: GABAPENTIN 300 MG CAPSULE PO SCH ×3 (08:27→20:29)
[2018-02-27] MEDS: ENOXAPARIN 40 MG/0.4 ML SQ SCH (08:27)
[2018-02-27] MEDS: FERROUS SULFATE 325 MG TABLET PO SCH (08:27)
[2018-02-27] MEDS: SENNA/DOCUSATE TABLET PO SCH (08:27)
[2018-02-27] MEDS: TAMSULOSIN 0.4 MG CAP.ER.24H PO SCH (08:27)
[2018-02-27] MEDS: ASPIRIN 81 MG TABLET CHEW PO SCH (08:28)
[2018-02-27] MEDS: metFORMIN 500 MG TABLET PO SCH ×2 (08:28→20:29)
[2018-02-27] MEDS: MULTIVITAMINS/MINERALS TABLET PO SCH (08:28)
[2018-02-27] MEDS: SODIUM CHLORIDE FLUSH 10ML SYR IVF SCH ×2 (08:29→20:30)
[2018-02-27] MEDS: POLYETHYLENE GLYCOL 17 GM PACKET PO PRN (08:33)
[2018-02-27] MEDS: NAPHAZOLINE/PHENIRAMINE OPHTH EACHEYE SCH (08:33)
[2018-02-27] MEDS: TEMPLATE NON-FORMULARY MED. (Tiotropium Br/Olodaterol HCl (Stiolto Respimat Inhal Spray) 2 INH SCH (09:00)
[2018-02-27 14:14] VITALS: BP 123/76
[2018-02-27] MEDS: NICOTINE 7 MG/24 HR PATCH.TD24 TD SCH (16:17)
[2018-02-27 20:03] VITALS: BP 121/61
[2018-02-27] MEDS: ATORVASTATIN 40 MG TABLET PO SCH (20:29)
[2018-02-27] MEDS: MELATONIN 3 MG TABLET PO SCH (20:29)
[2018-02-28 01:14] VITALS: BP 132/75
[2018-02-28] MEDS: EYE WASH SOLUTION 120ML EACHEYE PRN ×2 (05:10→20:55)
[2018-02-28] MEDS: HYDROcodone/APAP 5/325 TABLET PO PRN ×4 (05:13→18:41)
[2018-02-28 06:29] VITALS: BP 124/68
[2018-02-28] MEDS: INSULIN LISPRO 100 UNITS/ML, PEN SQ-INSULIN SCH ×4 (07:00→20:56)
[2018-02-28] MEDS: NAPHAZOLINE/PHENIRAMINE OPHTH EACHEYE SCH (09:00)
[2018-02-28] MEDS: TEMPLATE NON-FORMULARY MED. (Tiotropium Br/Olodaterol HCl (Stiolto Respimat Inhal Spray) 2 INH SCH (09:00)
[2018-02-28] MEDS: ASPIRIN 81 MG TABLET CHEW PO SCH (10:20)
[2018-02-28] MEDS: GABAPENTIN 300 MG CAPSULE PO SCH ×3 (10:20→20:55)
[2018-02-28] MEDS: metFORMIN 500 MG TABLET PO SCH ×2 (10:20→20:55)
[2018-02-28] MEDS: TAMSULOSIN 0.4 MG CAP.ER.24H PO SCH (10:20)
[2018-02-28] MEDS: FERROUS SULFATE 325 MG TABLET PO SCH (10:20)
[2018-02-28] MEDS: ENOXAPARIN 40 MG/0.4 ML SQ SCH (10:21)
[2018-02-28] MEDS: MULTIVITAMINS/MINERALS TABLET PO SCH (10:21)
[2018-02-28] MEDS: SENNA/DOCUSATE TABLET PO SCH (10:21)
[2018-02-28] MEDS: SODIUM CHLORIDE FLUSH 10ML SYR IVF SCH ×2 (10:22→20:56)
[2018-02-28] MEDS: POLYETHYLENE GLYCOL 17 GM PACKET PO PRN (12:03)
[2018-02-28 12:53] VITALS: BP 107/57
[2018-02-28] MEDS: NICOTINE 7 MG/24 HR PATCH.TD24 TD SCH (17:00)
[2018-02-28] MEDS ORDERED: ATOR40TA78 PO (17:29)
[2018-02-28 20:09] VITALS: BP 117/65
[2018-02-28] MEDS: ATORVASTATIN 40 MG TABLET PO SCH (20:55)
[2018-02-28] MEDS: MELATONIN 3 MG TABLET PO SCH (20:55)
[2018-03-01 01:40] VITALS: BP 104/64
[2018-03-01] MEDS: HYDROcodone/APAP 5/325 TABLET PO PRN ×3 (04:40→15:19)
[2018-03-01] MEDS: DOCUSATE 100 MG CAPSULE PO PRN (04:42)
[2018-03-01 05:18] LABS: CREATININE 0.75 mg/dL (0.7-1.3)
[2018-03-01] MEDS: EYE WASH SOLUTION 120ML EACHEYE PRN ×3 (05:57→19:33)
[2018-03-01] MEDS: INSULIN LISPRO 100 UNITS/ML, PEN SQ-INSULIN SCH ×4 (07:00→19:45)
[2018-03-01] MEDS: TEMPLATE NON-FORMULARY MED. (Tiotropium Br/Olodaterol HCl (Stiolto Respimat Inhal Spray) 2 INH SCH (07:41)
[2018-03-01] MEDS: TAMSULOSIN 0.4 MG CAP.ER.24H PO SCH (08:03)
[2018-03-01] MEDS: SENNA/DOCUSATE TABLET PO SCH (08:03)
[2018-03-01] MEDS: SODIUM CHLORIDE FLUSH 10ML SYR IVF SCH ×2 (08:04→19:37)
[2018-03-01] MEDS: ENOXAPARIN 40 MG/0.4 ML SQ SCH (08:04)
[2018-03-01] MEDS: metFORMIN 500 MG TABLET PO SCH ×2 (08:04→19:32)
[2018-03-01] MEDS: GABAPENTIN 300 MG CAPSULE PO SCH ×3 (08:04→19:32)
[2018-03-01] MEDS: FERROUS SULFATE 325 MG TABLET PO SCH (08:04)
[2018-03-01] MEDS: MULTIVITAMINS/MINERALS TABLET PO SCH (08:04)
[2018-03-01] MEDS: ASPIRIN 81 MG TABLET CHEW PO SCH (08:04)
[2018-03-01] MEDS: NAPHAZOLINE/PHENIRAMINE OPHTH EACHEYE SCH (08:05)
[2018-03-01 08:13] VITALS: BP 131/63
[2018-03-01 12:11] VITALS: BP 113/65
[2018-03-01] MEDS: KETOROLAC 30 MG/1 ML IVPush PRN ×2 (13:02→19:32)
[2018-03-01] MEDS: NICOTINE 7 MG/24 HR PATCH.TD24 TD SCH (17:00)
[2018-03-01 19:14] VITALS: BP 103/54
[2018-03-01] MEDS: ATORVASTATIN 40 MG TABLET PO SCH (19:32)
[2018-03-01] MEDS: MELATONIN 3 MG TABLET PO SCH (19:32)
[2018-03-02 01:33] VITALS: BP 117/68
[2018-03-02] MEDS: HYDROcodone/APAP 5/325 TABLET PO PRN ×2 (05:32→11:08)
[2018-03-02] MEDS: EYE WASH SOLUTION 120ML EACHEYE PRN (05:32)
[2018-03-02] MEDS: INSULIN LISPRO 100 UNITS/ML, PEN SQ-INSULIN SCH ×2 (07:00→11:00)
[2018-03-02 07:02] VITALS: BP 134/66
[2018-03-02] MEDS: TEMPLATE NON-FORMULARY MED. (Tiotropium Br/Olodaterol HCl (Stiolto Respimat Inhal Spray) 2 INH SCH (08:58)
[2018-03-02] MEDS: NAPHAZOLINE/PHENIRAMINE OPHTH EACHEYE SCH (09:00)
[2018-03-02] MEDS: ENOXAPARIN 40 MG/0.4 ML SQ SCH (09:16)
[2018-03-02] MEDS: metFORMIN 500 MG TABLET PO SCH (09:16)
[2018-03-02] MEDS: GABAPENTIN 300 MG CAPSULE PO SCH (09:16)
[2018-03-02] MEDS: SENNA/DOCUSATE TABLET PO SCH (09:16)
[2018-03-02] MEDS: MULTIVITAMINS/MINERALS TABLET PO SCH (09:16)
[2018-03-02] MEDS: TAMSULOSIN 0.4 MG CAP.ER.24H PO SCH (09:16)
[2018-03-02] MEDS: FERROUS SULFATE 325 MG TABLET PO SCH (09:17)
[2018-03-02] MEDS: SODIUM CHLORIDE FLUSH 10ML SYR IVF SCH (09:17)
[2018-03-02] MEDS: ASPIRIN 81 MG TABLET CHEW PO SCH (09:17)
[2018-03-02] MEDS ORDERED: TRAM-47 PO (09:32)
[2018-03-02 12:09] VITALS: BP 136/75
== END 2018-03-02 14:10 | disposition home or self-care (01) | DRG 640 ==
LOC: SUATTDRO 16:39 → ED 16:45 → EDIP 16:46 → ED 16:55 → 3NE 17:48 → OBSVTOIN 02-16 13:41
PROVIDERS: ADMIT Family Medicine; ATTEND Family Medicine
DX: R62.7 Adult failure to thrive (principal); R53.2 Functional quadriplegia; E11.42 Type 2 diabetes mellitus with diabetic polyneuropathy; J44.9 Chronic obstructive pulmonary disease, unspecified; F17.200 Nicotine dependence, unspecified, uncomplicated; G89.29 Other chronic pain; I10 Essential (primary) hypertension; Z66 Do not resuscitate; I25.10 Atherosclerotic heart disease of native coronary artery without angina pectoris; I48.91 Unspecified atrial fibrillation; K21.9 Gastro-esophageal reflux disease without esophagitis; M81.0 Age-related osteoporosis without current pathological fracture; N40.0 Benign prostatic hyperplasia without lower urinary tract symptoms; Z87.01 Personal history of pneumonia (recurrent); I25.2 Old myocardial infarction; Z79.899 Other long term (current) drug therapy
CPT/HCPCS: 36415; 71045; 72192; 80053; 82565; 82962; 83880; 84484; 85025; 86480; 93005; 96374; 96375; 99285; G0378; J1650; J1885; J2405; Q0162; J1815; J2270